=== PATIENT | female | born 1990 | race African-American/Black ===

== ENCOUNTER 2018-07-27 09:22 | Emergency (ER) | payer OTHER ==
[~2018-07-27] VITALS: Ht 167.6 cm; Wt 77.1 kg
[~2018-07-27 09:22] MED LIST: FLAGYL500 MG PO; ZOFRAN4 MG PO
[2018-07-27 10:00] LABS: URINE BILIRUBIN NEGATIVE (Negative); URINE BLOOD NEGATIVE (Negative); URINE CLARITY CLEAR; URINE COLOR YELLOW; URINE GLUCOSE-RANDOM* NEGATIVE (Negative); URINE KETONES NEGATIVE (Negative); URINE LEUKOCYTES-REFLEX NEGATIVE (Negative); URINE NITRITE-REFLEX NEGATIVE (Negative); URINE PROTEIN (DIPSTICK) TRACE (Negative); URINE UROBILINOGEN 0.2 E.U./dl (0.2-1.0)
[2018-07-27 10:14] LABS: ABSOLUTE NEUTROPHILS 8.2 thou/uL (1.4-8.2); BASOPHILS 0.7 % (0.0-2.0); EOSINOPHILS 0.3 % (0.0-3.0); HEMATOCRIT 35.5 % (37.0-47.0); LYMPHOCYTES 14.8 % (24.0-44.0); MCH 30.8 pg (26.0-34.0); MCHC 33.7 g/dL (28.0-37.0); MCV 91.5 fL (80.0-100.0); PLATELET COUNT 378 thou/uL (150-400); POLYS 81.2 % (36.0-66.0); RBC 3.88 mil/uL (4.20-5.00); RDW 12.8 % (10.5-14.5); WBC 10.1 thou/uL (4.0-11.0)
[2018-07-27 10:27] LABS: CALCIUM 9.5 mg/dL (8.5-10.1); CREATININE 0.8 mg/dL (0.6-1.0); POTASSIUM 3.9 mmol/L (3.5-5.1)
[2018-07-27] MEDS ORDERED: ZOFRAN ODT4 MG PO (10:45)
[2018-07-27 10:54] VITALS: BP 127/68
== END 2018-07-27 10:55 | disposition home or self-care (01) ==
LOC: ER 09:22
PROVIDERS: Emergency Medicine
DX: R11.2 Nausea with vomiting, unspecified (principal); R10.32 Left lower quadrant pain; Z88.6 Allergy status to analgesic agent